=== PATIENT | female | born 1975 | race African-American/Black ===

== ENCOUNTER 2017-01-13 16:15 | Emergency (ER) | payer OTHER ==
--- NOTE | ~2017-01-13 | CR72 ---
[facility] A Service [facility] RADIOLOGY TEXT RESULTS PATIENT: SARAH SUAREZ V LOCATION: SED : 74 UNIT #: [id number] AGE: [address]: Bi Mart MD SEX: F ORDER DR: [id number] [place] [id number] E MR#: [id number] Acc #: [id number] NAME: SARAH SUAREZ V. : 1975 SEX: F STUDY DATE/TIME: 01/13/2017 17:02 UNIT: SED ROOM: STUDY DESCRIPTION: CR Chest Single View Portable Attending Physician: Bi Mart M.D. Ordering Physician: Chrissy Lim M.D. Primary Care Physician: Joe Contreras M.D. MEDICAL IMAGING REPORT This report is preliminary unless electronic signature is present. EXAM Single view of the chest dated 01/13/2017. COMPARISON Single view chest dated 01/09/2016. HISTORY Chest pain for 3 days. FINDINGS Frontal view of the chest was obtained. Technique and patient body habitus limits evaluation of the bilateral lateral CP angles and adjacent lower lung zones. A single AP portable view of the chest shows both lungs to be clear. The heart is normal in size. The mediastinal contour is normal. No significant bone abnormalities are seen. IMPRESSION Normal portable chest. Dictated by... Qi Herrera M.D. THIS IS AN ELECTRONICALLY VERIFIED REPORT Qi Herrera M.D. at 01/14/2017 2:42 PM CPR/psc TD: 01/14/2017 02:02 JOB #: [id number] MEDICAL IMAGING REPORT [facility] A Service [facility] RADIOLOGY TEXT RESULTS PATIENT: SARAH SUAREZ V LOCATION: SED : 74 UNIT #: [id number] AGE: [address]: Bi Mart MD SEX: F ORDER DR: Page 1 of 1
--- NOTE | ~2017-01-13 | EKG ---
PATIENT: SARAH SUAREZ UNIT #: [id number] Ventricular Rate: 105 BPM Atrial Rate: 105 BPM P-R Interval: 148 ms QRS Duration: 68 ms Q-T Interval: 326 ms QTC Calculation(Bezet): 430 ms P Wells: 58 degrees Calculated R Wells: 40 degrees Calculated T Wells: 23 degrees Diagnosis Line: Sinus tachycardia Diagnosis Line: Otherwise normal ECG Diagnosis Line: When compared with ECG of 10-DEC-2012 18:45, Diagnosis Line: Nonspecific T wave abnormality no longer evident Diagnosis Line: in Anterior leads Diagnosis Line: Confirmed by SOFÍA FLORENTINO MD ([id number]) on Diagnosis Line: 01/15/2017 4:49:30 PM INTERPRETING MD: CHADD ROJAS
--- NOTE | ~2017-01-13 | CT16 ---
[facility] A Service of [facility] RADIOLOGY TEXT RESULTS PATIENT: SARAH SUAREZ V LOCATION: SED : 74 UNIT #: [id number] AGE: [address]: Bi Mart MD SEX: F ORDER DR: [id number] [place] [id number] E MR#: [id number] Acc #: [id number] NAME: SARAH SUAREZ V. : 1975 SEX: F STUDY DATE/TIME: 01/13/2017 18:21 UNIT: SED ROOM: STUDY DESCRIPTION: CT Angio Chest for PE Attending Physician: Bi Mart M.D. Ordering Physician: Chrissy Lim M.D. Primary Care Physician: Joe Contreras M.D. MEDICAL IMAGING REPORT This report is preliminary unless electronic signature is present. EXAM Chest CT angiogram with contrast, PROCEDURE Axial contrast-enhanced chest CT angiogram with three-dimensional reformats. This CT exam was performed with one or more of the following radiation dose reduction techniques: automatic exposure control, adjustment of mA and/or kV according to patient size, and iterative reconstruction. CLINICAL HISTORY Three-day history of chest pain. FINDINGS There s no pulmonary infiltrate, pleural effusion, or pneumothorax. There are a few tiny faint parenchymal densities, some vaguely nodular but likely representing mildly atypical atelectasis. There is again no consolidation or effusion or pneumothorax. Bolus timing is good but body habitus limits the exam. There is no evidence of pulmonary embolism. The thoracic aorta is normal in caliber. Images of the upper abdomen are unremarkable. IMPRESSION Mildly limited by body habitus but otherwise negative chest CT angiogram. Good bolus timing. No convincing evidence of pulmonary embolism. No convincing acute pulmonary process, no consolidation or effusion or pneumothorax. Normal thoracic aorta. [facility] A Service of [facility] RADIOLOGY TEXT RESULTS PATIENT: SARAH SUAREZ V LOCATION: SED : 74 UNIT #: [id number] AGE: [address]: Bi Mart MD SEX: F ORDER DR: Dictated by... Bacilio Mendez M.D. THIS IS AN ELECTRONICALLY VERIFIED REPORT Bacilio Mendez M.D. at 01/16/2017 5:37 PM SHANA/luis antonio TD: 01/14/2017 03:11 JOB #: [id number] MEDICAL IMAGING REPORT Page 1 of 1
[~2017-01-13 16:15] MED LIST: ACETAMINOPHEN PO; ALBUTEROL17 GM; COUGH SYRUP; FLEXERIL PO; KEFLEX500 M1 PO; LISINOPRIL-HCTZ1 T15 PO; LORTAB 7.5-5001 TAB PO; METOPROLOL TART25 MG PO; NAPROSYN500 MG PO; NORVASC PO; NORVASC10 MG PO; OMEPRAZOLE40 MG PO; PROMETHAZINE D118 ML; VIBRAMYCIN100 M1; VOLTAREN50 MG PO
[2017-01-13 16:52] LABS: BASOPHIL# 0.1 X10e3 (0-0.3); BASOPHIL% 1.2 % (0-2.5); EOSINOPHIL# 0.1 X10e3 (0-0.7); EOSINOPHIL% 1.8 % (0.0-7.0); HEMATOCRIT 35.6 % (35.0-45.0); HEMOGLOBIN 11.6 gm/dL (12.0-16.0); LYMPHOCYTE# 2.2 X10e3 (1.0-3.5); LYMPHOCYTE% 30.9 % (17.0-45.0); MEAN CELL VOLUME 81.3 FL (83-96); MEAN CORPUSCULAR HEMOGLOBIN 26.4 PG (28-34); MEAN CORPUSCULAR HGB CONC 32.5 g/dL (30-36); MEAN PLATELET VOLUME 8.9 FL (6.5-11.5); MONOCYTE# 0.6 X10e3 (0-1.0); MONOCYTE% 8.8 % (3.0-12.0); NEUTROPHIL# 4.1 X10e3 (1.5-7.1); NEUTROPHIL% 57.3 % (40-75); PLATELET COUNT 302 X10e3 (140-420); RED BLOOD COUNT 4.38 X10e (3.90-5.30); RED CELL DISTRIBUTION WIDTH 16.7 % (11.0-15.5); WHITE BLOOD COUNT 7.1 X10e3 (4.0-10.5)
[2017-01-13 16:54] LABS: DIFF IND NO
[2017-01-13 17:05] LABS: POC - CKMB 2.2 ng/mL (0.0-7.9)
[2017-01-13 17:05] LABS: INR 1.1; PROTHROMBIN TIME (PATIENT) 11.9 SECONDS (9.5-12.4)
[2017-01-13 17:06] LABS: POC - TROPONIN <0.05 ng/mL (<=0.05)
[2017-01-13 17:14] LABS: ALBUMIN SERUM 3.6 g/dL (3.5-5.0); ALKALINE PHOSPHATASE 69 U/L (32-92); ALT (SGPT) 16 U/L (10-40); AST (SGOT) 18 U/L (10-42); BILIRUBIN,TOTAL 0.2 mg/dL (0.2-2.0); BLOOD UREA NITROGEN 12 mg/dL (9-23); CALCIUM SERUM 8.6 mg/dL (8.4-10.2); CARBON DIOXIDE 24 mmol/L (22-31); CHLORIDE 106 mmol/L (100-111); CREATININE SERUM 0.8 mg/dL (0.6-1.4); GLOM FILT RATE Estimated 105.5 mL/min (>60); GLUCOSE FASTING 84 mg/dL (70-110); POTASSIUM 3.9 mmol/L (3.5-5.1); PROTEIN TOTAL SERUM 7.6 g/dL (6.0-8.3); SODIUM 135 mmol/L (135-145)
[2017-01-13 17:22] LABS: BILIRUBIN, DIRECT <0.1 mg/dL (0.0-0.2); BILIRUBIN,INDIRECT 0.1 mg/dL (0.0-0.9)
[2017-01-13 17:27] LABS: PARTIAL THROMBOPLASTIN TIME 28.3 SECONDS (25.6-38.1)
[2017-01-13 18:47] LABS: POC - TROPONIN <0.05 ng/mL (<=0.05)
== END 2017-01-13 20:15 | disposition home or self-care (01) ==
LOC: SED 16:15
PROVIDERS: Student in an Organized Health Care Education/Training Program
DX: R07.9 Chest pain, unspecified (principal); I10 Essential (primary) hypertension; R06.02 Shortness of breath; F17.200 Nicotine dependence, unspecified, uncomplicated; Z90.49 Acquired absence of other specified parts of digestive tract; Z98.51 Tubal ligation status; Z88.5 Allergy status to narcotic agent; Z79.899 Other long term (current) drug therapy
CPT/HCPCS: 36415; 71010; 71275; 80048; 80076; 82553; 83880; 84484; 84703; 85025; 85379; 85610; 85730; 93005; 96374; 96375; 99285; J1200; J1885; J2405; Q9967

== ENCOUNTER 2017-02-05 12:19 | Emergency (ER) | payer OTHER ==
[2017-02-05] MEDS ORDERED: HYDROCHLOROTHIA25 MG PO (12:21)
[2017-02-05 12:58] LABS: URINE SOURCE CLEAN CATCH
[2017-02-05 13:00] LABS: URINE APPEARANCE CLEAR; URINE BILIRUBIN NEG (NEG); URINE BLOOD TRACE-INTACT (NEG); URINE COLOR YELLOW; URINE GLUCOSE NEG (NORM); URINE KETONE NEG (NEG); URINE LEUKOCYTE ESTERASE NEG (NEG); URINE NITRATE NEG (NEG); URINE PH 5.5 (5-8); URINE PROTEIN 2+ (NEG); URINE SPECIFIC GRAVITY >=1.030 (1.003-1.035); URINE UROBILINOGEN 0.2 MG/DL (NORM)
[2017-02-05 13:07] LABS: MICRO INDICATED? YES; URINE BACTERIA NEG (NEG); URINE RBC 0-2 /[HPF] (0-2); URINE WBC 0-2 /[HPF] (0-5)
[2017-02-05 13:08] LABS: CULTURE INDICATED? NO
== END 2017-02-05 13:32 | disposition home or self-care (01) ==
LOC: SED 12:19
PROVIDERS: Emergency Medicine
DX: S76.011A Strain of muscle, fascia and tendon of right hip, initial encounter (principal); K21.9 Gastro-esophageal reflux disease without esophagitis; Z90.49 Acquired absence of other specified parts of digestive tract; F17.200 Nicotine dependence, unspecified, uncomplicated; Z88.8 Allergy status to other drugs, medicaments and biological substances; X58.XXXA Exposure to other specified factors, initial encounter; Y92.9 Unspecified place or not applicable
CPT/HCPCS: 81003; 84703; 96372; 99283; J1885